=== PATIENT | female | born 1970 | race Caucasian/White ===

== ENCOUNTER 2019-04-03 20:33 | Emergency (ER) | payer OTHER ==
--- NOTE | 2019-04-03 21:40 | ED ---
GI/ HPI - HPI Summary HPI Summary: 49 year old female with a history of high blood pressure presents with LLQ pain for 2 days. Pain initially radiated to her back. Patient has diffuse abdominal pain but it is more localized to the LLQ. Pain feels like constant pressure. Patient has some pain relief with tylenol. No trauma noted by patient. No change in bowel movements or urination. No N/V/D. No fever, chills or night sweats. No headache, chest pain, shortness of breath or heart palpitations. Patient noticed pain after eating peanuts the day before. Patient has had a loss of appetite and only had a cheese stick to eat today. has been treated with cipro for past day with no improvement. normally has looser stools and has had no change in such. no blood in stool. - History of Current Complaint Chief Complaint: EDAbdPain Time Seen by Provider: 04/03/19 20:55 Stated Complaint: ABD PAIN PER PT Hx Last Menstrual Period: IUD Pain Intensity: 2 - Allergy/Home Medications Allergies/Adverse Reactions: Allergies Allergy/AdvReac Type Severity Reaction Status Date / Time No Known Allergies Allergy Verified 04/03/19 20:37 PMH/Surg Hx/FS Hx/Imm Hx Endocrine/Hematology History: Denies: Hx Anticoagulant Therapy Cardiovascular History: Reports: Hx Hypertension - Surgical History Surgery Procedure, Year, and Place: c section 2007, breast reduction 1999, ankle surgery 1996 Infectious Disease History: No Infectious Disease History: Denies: Traveled Outside the [place] in Last 30 Days - Social History Alcohol Use: Occasionally Substance Use Type: Reports: None Smoking Status (MU): Never Smoked Tobacco Review of Systems Negative: Fever Negative: Chest Pain Negative: Shortness Of Breath Positive: Abdominal Pain. Negative: Vomiting, Diarrhea, Nausea All Other Systems Reviewed And Are Negative: Yes Physical Exam Triage Information Reviewed: Yes Vital Signs On Initial Exam: Initial Vitals Temp Pulse Resp BP Pulse Ox 97.8 F 58 15 225/129 99 04/03/19 20:34 04/03/19 20:34 04/03/19 20:34 04/03/19 20:34 04/03/19 20:34 Vital Signs Reviewed: Yes Appearance: Positive: Well-Appearing Skin: Positive: Warm, Dry Head/Face: Positive: Normal Head/Face Inspection Eyes: Positive: Normal, Conjunctiva Clear ENT: Positive: Pharynx normal Respiratory/Lung Sounds: Positive: Clear to Auscultation, Breath Sounds Present Cardiovascular: Positive: Normal, RRR Abdomen Description: Positive: Soft, Other: - tenderness in LLQ Bowel Sounds: Positive: Present Musculoskeletal: Positive: Normal Neurological: Positive: Normal Psychiatric: Positive: Normal Diagnostics - Vital Signs Vital Signs Temp Pulse Resp BP Pulse Ox 04/03/19 20:34 97.8 F 58 15 225/129 99 - Laboratory Result Diagrams: 04/03/19 21:38 04/03/19 21:38 Lab Statement: Any lab studies that have been ordered have been reviewed, and results considered in the medical decision making process. - CT abd CT Interpretation Completed By: Radiologist Summary of CT Findings: IMPRESSION: 1. There is a central fatty lesion anterior to the proximal sigmoid colon with. this lesion measuring 3.8 x 1.8 cm suspicious for epiploic appendagitis. No. obvious bowel inflammatory change and no diverticulosis. 2. There is a simple appearing cyst of the right ovary measuring 1.7 cm. - EKG No standard instances Cardiac Rate: NL EKG Rhythm: Sinus Rhythm Summary of EKG Findings: sinus rhythm Re-Evaluation - Re-Evaluation First Eval Re-Evaluation Time: 23:06 Change: Unchanged Comment: pain unchanged Second Eval Comment: gave clondine and bp did not dec Third Eval Re-Evaluation Time: 02:34 Comment: no chest pain, or SOb Fourth Eval Comment: bp 162/80 GIGU Course/Dx - Course Course Of Treatment: 49 year old female with a history of high blood pressure presents with LLQ pain for 2 days. Pain initially radiated to her back. Patient has diffuse abdominal pain but it is more localized to the LLQ. Pain feels like constant pressure. Patient has some pain relief with tylenol. No trauma noted by patient. No change in bowel movements or urination. No N/V/D. No fever, chills or night sweats. No headache, chest pain, shortness of breath or heart palpitations. Patient noticed pain after eating peanuts the day before. Patient has had a loss of appetite and only had a cheese stick to eat today. has been treated with cipro for past day with no improvement. normally has looser stools and has had no change in such. no blood in stool. on exam has tenderness in LLQ. wbc 12. crp elevated. urine no infection. CT shows epiploic appendagitis. gave dose of clondine with patient. discussed with results patient. was give clondine, hydrazaline and labetalol and blood pressure did drop to 160. will start on amlodipine. told follow up with primary about blood pressure. patient understand and agrees with plan. - Diagnoses Differential Diagnoses - Female: Diverticulosis, Gastroenteritis (Viral), Urinary Tract Infection Provider Diagnoses: Epiploic appendagitis, Hypertension - Critical Care Time Critical Care Time: 30-74 min - 45 mins Discharge - Sign-Out/Discharge Documenting (check all that apply): Patient Departure Patient Received Moderate/Deep Sedation with Procedure: No - Discharge Plan Condition: Good Disposition: HOME Prescriptions: amLODIPine TAB* [Norvasc 5 mg TAB*] 5 mg PO DAILY #7 tab Patient Education Materials: Hypertension (ED) Referrals: Yoav Saul MD [Primary Care Provider] - Additional Instructions: take ibuprofen or tyenlol every 6 hours for pain stop cipro take amlodipime once a day follow up with primary about blood pressure Return to ED if develop any new or worsening symptoms - Billing Disposition and Condition Condition: GOOD Disposition: Home
[2019-04-03] MEDS ORDERED: NS 0.9% 1000 ML** 2,000 ML IV ONE (21:46)
[2019-04-03 21:59] LABS: ABS Basophils 0.1 10^3/ul (0-0.2); ABS Eosinophils 0.4 10^3/ul (0-0.6); ABS Lymphocytes 2.2 10^3/ul (1.0-4.8); ABS Monocytes 0.7 10^3/ul (0-0.8); ABS Neutrophils 8.8 10^3/ul (1.5-7.7); Hematocrit 40 % (35-47); Hemoglobin 13.6 g/dL (12.0-16.0); Lymphocyte % 18.2 %; Mean Corpuscular HGB Conc 34 g/dL (31-36); Mean Corpuscular Hemoglobin 32 pg (27-31); Mean Corpuscular Volume 94 fL (80-97); Mean Platelet Volume 9.4 fL (7.4-10.4); Platelet Count 215 10^3/uL (150-450); Red Blood Count 4.23 10^6 /uL (3.70-4.87); Red Cell Distribution Width 14 % (10-15); White Blood Count 12.2 10^3/uL (3.5-10.8)
[2019-04-03 22:17] LABS: ALT 32 U/L (7-52); AST 23 U/L (13-39); Albumin 4.1 g/dL (3.2-5.2); Albumin/Globulin Ratio 1.3 (1-3); Alkaline Phosphatase 64 U/L (34-104); Anion Gap 7 mmol/L (2-11); BUN/Creatinine Ratio 19.4 (8-20); Blood Urea Nitrogen 13 mg/dL (6-24); C Reactive Protein 31.58 mg/L (<8.01); CO2 Carbon Dioxide 27 mmol/L (22-32); Calcium 9.2 mg/dL (8.6-10.3); Chloride 101 mmol/L (101-111); EGFR African American 112.7 (>60); EGFR Non-African American 93.2 (>60); Globulin 3.1 g/dL (2-4); Glucose 96 mg/dL (70-100); Potassium 3.7 mmol/L (3.5-5.0); Sodium 135 mmol/L (135-145); Total Protein 7.2 g/dL (6.4-8.9)
[2019-04-03 22:24] LABS: HCG Pregnancy < 0.60 mIU/mL
[2019-04-03] MEDS ORDERED: Iohexol 300* (CONTRAST) 10 ML SDV IV ONE (23:03)
[2019-04-04] MEDS ORDERED: cloNIDine TAB* 0.1 MG PO ONE (00:30)
[2019-04-04] MEDS ORDERED: hydrALAZINE IV* 20 MG/ML VIAL IV SLOW PU ONE ×2 (01:37→02:19)
[2019-04-04] MEDS ORDERED: Labetalol IV* 5 MG/ML 20 ML VIAL IV PUSH ONE (02:25)
[2019-04-04] MEDS ORDERED: amLODIPine TAB* 5 MG PO ONE (02:45)
[2019-04-04 03:02] VITALS: BP 190/107
== END 2019-04-04 03:02 | disposition home or self-care (01) ==
LOC: ED 20:33
DX: K63.89 Other specified diseases of intestine (principal); I10 Essential (primary) hypertension; N83.201 Unspecified ovarian cyst, right side
CPT/HCPCS: 36415; 74177; 80053; 83605; 83690; 84702; 85025; 86140; 93005; 96361; 96374; 96375; 96376; 99284; A9270-GY; J0360; Q9967